=== PATIENT | female | born 1995 | race Caucasian/White ===

== ENCOUNTER 2017-07-16 17:17 | Outpatient (CLI) | payer OTHER ==
[2017-07-16 18:16] LABS: APPEARANCE,URINE CLEAR; BILIRUBIN,URINE NEGATIVE (NEGATIVE); GLUCOSE, URINE NEGATIVE (NEGATIVE); KETONES,URINE NEGATIVE (NEGATIVE); LEUKOCYTE ESTERASE,URINE NEGATIVE (NEGATIVE); NITRITE,URINE NEGATIVE (NEGATIVE); PROTEIN,URINE NEGATIVE (NEGATIVE); URINE SPECIFIC GRAVITY 1.004; UROBILINOGEN,URINE NEGATIVE mg/dL (<2.0)
[2017-07-16 18:35] LABS: URINE BARBITURATES SCREEN NEGATIVE; URINE METHADONE SCREEN NEGATIVE; URINE OPIATES LOW NEGATIVE; URINE PHENCYCLIDINE SCREEN NEGATIVE
--- NOTE | 2017-07-16 19:00 | Non Stress Test Report ---
Non Stress Test Datetime Report Generated by CPN: 07/16/2017 19:00 DEMOGRAPHIC Test Number: 1 EGA NST: 39.6 INDICATION Indication for Study: Decreased Movement; Ordered by Provider Indication for Study (NST) Other: Contractions MONITORING Monitor Explained: Monitor Explained; Test Explained; Patient Verbalized Understanding Time on Monitor: 07/16/2017 17:37 Time off Monitor: 07/16/2017 18:17 NST Duration: 40 NST INTERVENTIONS NST Interventions: None BABY A: [id number] BABY A Movement : Present Contraction Frequency : Irreg FHR Baseline : 135 Accelerations : 15X15 Decelerations : None Variability : Moderate 6-25bpm NST Review: Meets Criteria for Reactive NST NST Review and Verified By : B Baidy RN NST Results: Reactive NST REPORT Report Trigger: Send Report
== END 2017-07-16 18:27 | disposition home or self-care (01) ==
LOC: LC 17:17
PROVIDERS: ATTEND Specialist
DX: O36.8130 Decreased fetal movements, third trimester, not applicable or unspecified (principal); Z3A.39 39 weeks gestation of pregnancy
CPT/HCPCS: 59025; 80307; 81001

== ENCOUNTER 2017-07-17 21:37 | Outpatient (CLI) | payer OTHER ==
[2017-07-17 22:14] LABS: APPEARANCE,URINE CLEAR; BILIRUBIN,URINE NEGATIVE (NEGATIVE); GLUCOSE, URINE NEGATIVE (NEGATIVE); KETONES,URINE NEGATIVE (NEGATIVE); LEUKOCYTE ESTERASE,URINE NEGATIVE (NEGATIVE); NITRITE,URINE NEGATIVE (NEGATIVE); PROTEIN,URINE NEGATIVE (NEGATIVE); URINE SPECIFIC GRAVITY 1.003; UROBILINOGEN,URINE NEGATIVE mg/dL (<2.0)
[2017-07-17 22:22] LABS: AMNISURE (ROM) NEGATIVE (NEGATIVE)
[2017-07-17 22:40] LABS: URINE BARBITURATES SCREEN NEGATIVE; URINE METHADONE SCREEN NEGATIVE; URINE OPIATES LOW NEGATIVE; URINE PHENCYCLIDINE SCREEN NEGATIVE
[2017-07-18] MEDS ORDERED: HYDROXYZINE PAMOATE 50 MG CAPSULE PO ONE (00:51)
[2017-07-18] MEDS ORDERED: HYDROXYZINE PAMOATE 50 MG CAPSULE ONE (00:56)
--- NOTE | 2017-07-18 01:06 | Non Stress Test Report ---
Non Stress Test Datetime Report Generated by CPN: 07/18/2017 01:05 DEMOGRAPHIC EGA NST: 40.0 INDICATION Indication for Study: Ordered by Provider MONITORING Monitor Explained: Monitor Explained; Test Explained; Patient Verbalized Understanding Time on Monitor: 07/17/2017 22:00 Time off Monitor: 07/17/2017 22:48 NST Duration: 48 NST INTERVENTIONS NST Interventions: PO Hydration; Reposition Patient Physician Notified NST: Dr. Sher BABY A Movement : Present Contraction Frequency : 2-8 FHR Baseline : 140 Accelerations : 15X15 Decelerations : None Variability : Moderate 6-25bpm NST Review: Meets Criteria for Reactive NST NST Review and Verified By : SUSHANT Coleman Results: Reactive NST REPORT Report Trigger: Send Report
== END 2017-07-18 01:00 | disposition home or self-care (01) ==
LOC: LC 21:37
PROVIDERS: ATTEND Obstetrics & Gynecology
PROC: 4A1HXCZ Monitoring of Products of Conception, Cardiac Rate, External Approach (ICD-10-PCS; principal; 2017-07-17)
DX: O47.1 False labor at or after 37 completed weeks of gestation (principal); Z3A.40 40 weeks gestation of pregnancy
CPT/HCPCS: 59025; 80307; 81005; 84112

== ENCOUNTER 2017-07-19 06:02 | Inpatient (IN) | payer OTHER ==
[2017-07-19] MEDS ORDERED: RINGERS SOLUTION,LACTATED 300 ML IV ONE (06:03)
[2017-07-19] MEDS ORDERED: RINGERS SOLUTION,LACTATED 1,000 ML IV PRN (06:03)
[2017-07-19] MEDS ORDERED: OXYTOCIN/NORMAL SALINE 20 UNIT/1,000 ML RTUINJ IV PRN ×2 (06:03→13:56)
[2017-07-19 06:25] LABS: APPEARANCE,URINE CLEAR; BILIRUBIN,URINE NEGATIVE (NEGATIVE); GLUCOSE, URINE NEGATIVE (NEGATIVE); KETONES,URINE NEGATIVE (NEGATIVE); LEUKOCYTE ESTERASE,URINE NEGATIVE (NEGATIVE); NITRITE,URINE NEGATIVE (NEGATIVE); PROTEIN,URINE NEGATIVE (NEGATIVE); URINE SPECIFIC GRAVITY 1.005; UROBILINOGEN,URINE NEGATIVE mg/dL (<2.0)
[2017-07-19] MEDS ORDERED: LIDOCAINE 1% INJ-PF (10 MG/ML) 30 ML SDV ONE (06:38)
[2017-07-19] MEDS ORDERED: OXYTOCIN/NORMAL SALINE 20 UNIT/1,000 ML RTUINJ ONE (06:38)
[2017-07-19] MEDS ORDERED: MISOPROSTOL 0.2 MG TABLET ONE (06:38)
[2017-07-19 06:43] LABS: ABSOLUTE EOSINOPHILS # (AUTO) 0.1 10^3/uL (0.0-0.6); ABSOLUTE LYMPHOCYTES (AUTO) 1.9 10^3/uL (0.5-4.7); ABSOLUTE MONOCYTES (AUTO) 0.8 10^3/uL (0.1-1.4); ABSOLUTE NEUT (AUTO) 7.1 10^3/uL (1.7-8.2); BASOPHILS % (AUTO) 0.2 % (0-2); EOSINOPHILS % (AUTO) 0.9 % (0-6); HEMATOCRIT 33.5 % (36.0-47.0); HGB HCT DIFFERENCE 2.5; LYMPHOCYTES % (AUTO) 19.4 % (13-45); MEAN CORPUSCULAR HEMOGLOBIN 32.6 pg (27.0-33.4); MEAN CORPUSCULAR VOLUME 91 fl (80-97); MONOCYTES % (AUTO) 7.8 % (3-13); RED BLOOD COUNT 3.69 10^6/uL (3.72-5.28); SEGMENTED NEUTROPHILS % (AUTO) 71.7 % (42-78); WHITE BLOOD COUNT 9.9 10^3/uL (4.0-10.5)
[2017-07-19 06:45] LABS: URINE BARBITURATES SCREEN NEGATIVE; URINE METHADONE SCREEN NEGATIVE; URINE OPIATES LOW NEGATIVE; URINE PHENCYCLIDINE SCREEN NEGATIVE
[2017-07-19] MEDS ORDERED: MAG HYDROX/AL HYDROX/SIMETH SUSP 30 ML UDCUP ONE (08:31)
[2017-07-19] MEDS ORDERED: FENTANYL/BUPIVACAINE/NS/PF 200 MCG/100 ML RTUINJ EPI ONE (08:55)
[2017-07-19] MEDS ORDERED: BUPIVACAINE HCL 0.25 % INJ/PF (2.5 MG/1 ML) 30 ML VIAL ONE (08:55)
[2017-07-19] MEDS ORDERED: EPHEDRINE SULFATE INJ 50 MG/1 ML AMPULE ONE (08:55)
--- NOTE | 2017-07-19 10:40 | L&D Progress Notes ---
PROGRESS NOTES Datetime Report Generated by CPN: 07/19/2017 10:40 PROGRESS NOTE Impression: Normal Progression of Labor Procedures: Artificial ROM Plan: Induction Comment: AROM clear.Pt comfortable with epidural. Cont pit induction. FETUS A FHR Category: Category I SIGNATURE SIGNATURE: [id number] SIGNATURE: [id number] SIGNATURE: [id number] Signature: with User ID: [email or web address]
[2017-07-19] MEDS ORDERED: BENZOCAINE/MENTHOL AEROSOL SPRAY 56 ML TOP PRN (13:56)
[2017-07-19] MEDS ORDERED: DIPHENHYDRAMINE HCL 25 MG CAPSULE PO PRN (13:56)
[2017-07-19] MEDS ORDERED: PROMETHAZINE HCL 25 MG TABLET PO PRN (13:56)
[2017-07-19] MEDS ORDERED: MEASLES,MUMPS&RUBELLA VACC/PF 0.5 ML VIAL SUBCUT PRN (13:56)
[2017-07-19] MEDS ORDERED: GLYCERIN/WITCH HAZEL LEAF 1 EACH MED..PAD TP PRN (13:56)
[2017-07-19] MEDS ORDERED: DIPH/PERTUSS(ACELL)/TETANUS VAC/PF 0.5 ML SYR (>=10YO) IM PRN (13:56)
[2017-07-19] MEDS ORDERED: MAGNESIUM HYDROXIDE SUSP 30 ML UDCUP PO PRN (13:56)
[2017-07-19] MEDS ORDERED: ACETAMINOPHEN 650 MG SUPP.RECT PR PRN (13:56)
[2017-07-19] MEDS ORDERED: PROMETHAZINE HCL INJ 25 MG/1 ML VIAL IV PRN (13:56)
[2017-07-19] MEDS ORDERED: DIBUCAINE 1% OINTMENT 28 GM TP PRN (13:56)
[2017-07-19] MEDS ORDERED: PSEUDOEPHEDRINE HCL 30 MG TABLET PO PRN (13:56)
[2017-07-19] MEDS ORDERED: NA PHOS,M-B/NA PHOS,DI-BA (ADULT) 133 ML ENEMA PR PRN (13:56)
[2017-07-19] MEDS ORDERED: ACETAMINOPHEN WITH CODEINE #3 TABLET PO PRN (13:56)
[2017-07-19] MEDS ORDERED: ZOLPIDEM TARTRATE 5 MG TABLET PO PRN (13:56)
[2017-07-19] MEDS ORDERED: PROMETHAZINE HCL 25 MG SUPP.RECT PR PRN (13:56)
--- NOTE | 2017-07-19 15:02 | Delivery Summary ---
Del Sum A-C Datetime Report Generated by CPN: 07/19/2017 15:02 DELIVERY PERSONNEL DELIVERY PERSONNEL: [id number] Delivery Doctor:: Alexandra Contreras CNM Labor and Delivery Nurse:: Elizabeth Negrete RNcommercial installer Nurse:: Samantha Elder RN MATERNAL INFORMATION Delivery Anesthesia: Epidural Medications After Delivery: Pitocin Bolus-Please Comment; Pitocin Drip 20 Units/1000ml NSS; Other-Please Comment Meds After Delivery Comment: Cytotec 1000mcg VT Estimated Blood Loss (ml): 300 Maternal Complications: None Provider Comments: live female in [facility] to [facility] at 1315 under epidural anesthesia. Tight nuchal cord-baby delivered through it as unable to reduce. Spontaneous respirations and cry. Apgars 8-9. 3-vessel cord. Cord clamped x 2, after 2 min delay, then cut by fob. Placenta, membranes, and cord expelled at 1121, [place] presentation-appears intact w calcifications. Bilateral labial tears repaired as stated above. 1000 mcg of Cytotec per rectum for bleeding. Patient tolerated procedure well. FF at U-3. LABOR SUMMARY EDC: 07/17/2017 00:00 No. Babies in Womb: 1 Attempted: No Labor Anesthesia: Epidural LABOR INFORMATION Reason for Induction: Other Reason for Induction- Other: Elective-prodromal Onset of Labor: 07/19/2017 07:25 Complete Dilatation: 07/19/2017 12:50 Oxytocin: Induction Group B Beta Strep: negative Antibiotics # of Doses: 0 Steroids Given: None Reason Steroids Not Administered: Not Applicable MEMBRANES Membranes Rupture Method: Artificial Rupture of Membranes: 07/19/2017 10:35 Length of Rupture (hr): 2.67 Amniotic Fluid Color: Clear Amniotic Fluid Amount: Small Amniotic Fluid Odor: Normal STAGES OF LABOR Stage 1 hr: 5 Stage 1 min: 25 Stage 2 hr: 0 Stage 2 min: 25 Stage 3 hr: 0 Stage 3 min: 6 Total Time in Labor hr: 5 Total Time in Labor min: 56 VAGINAL DELIVERY Episiotomy: None Laceration Extension: First Degree Other Laceration: labial Laceration Repair: Yes Laceration Repair Note: 3-0 Chromic used with interrupted stitches CSECTION DELIVERY Primary Indication: N/A Secondary Indication: N/A CSection Incidence: N/A Labor: N/A Elective: N/A CSection Incision: N/A BABY A INFORMATION Delivery Date/Time: 07/19/2017 13:15 Method of Delivery: Vaginal Born in Route : No : N/A Forceps: N/A Vacuum Extraction: N/A Shoulder Dystocia : No PRESENTATION/POSITION BABY A Presentation: Cephalic Cephalic Presentation: Vertex Vertex Position: Left Occipital Anterior Breech Presentation: N/A PLACENTA INFORMATION BABY A Placenta Delivery Time : 07/19/2017 13:21 Placenta Method of Delivery: Spontaneous Placenta Status: Delivered SCORES BABY A Heart Rate 1 min: >100 bpm Resp Effort 1 min: Good Cry Reflex Irritability 1 min: Cough or Sneeze or Pulls Away Muscle Tone 1 min: Active Motion Color 1 min: Blue/Pale Resuscitation Effort 1 min: Tactile Stimulation SCORE 1 MIN: 8 Heart Rate 5 min: >100 bpm Resp Effort 5 min: Good Cry Reflex Irritability 5 min: Cough or Sneeze or Pulls Away Muscle Tone 5 min: Active Motion Color 5 min: Body [place], Extremities Blue Resuscitation Effort 5 min: Tactile Stimulation SCORE 5 MIN: 9 INFANT INFORMATION BABY A Gestational Age at Delivery: 40.2 Gestational Status: Full Term- 39- 40.6 Weeks Outcome : Liveborn Condition : Stable Sex: Female IDENTIFICATION BABY A Verification Date/Time: 07/19/2017 13:49 ID Band Number: [id number] Mother's Name Verified: Yes Infant RN Verifying Infant: A Negrete RN R. Ja RN WEIGHT/LENGTH BABY A Infant Birthweight (gm): 4110 Weight (lb): 9 Weight (oz): 1 Length (in): 21.00 Length (cm): 53.34 CORD INFORMATION BABY A No. Cord Vessels: 3 Nuchal Cord : Around Neck x1, Tight Nuchal Cord- Other: body cord Cord Blood Taken: Yes-For Storage (Mom's Blood type +) Infant Suction: Mouth; Nose ASSESSMENT BABY A Complications: Other Complications- Other: terminal meconium Physical Findings at Delivery: Within Normal Limits Infant Respirations: Appears Normal Skin to Skin: Yes Lbd Teacher/ALS Called : No Care By: Chandrika Elder RN Transferred To: Remains with Mother BABY B INFORMATION : N/A SIGNATURES Assignment: Dasia Espinosa MD Signature: with User ID: Yana : with User ID: [email or web address] : I personally evaluated and examined the patient in conjunction with the MLP and agree with the assessment, treatment plan and disposition.
--- NOTE | 2017-07-19 15:29 | Admission Physical ---
Datetime Report Generated by CPN: 07/19/2017 15:29 CURRENT ADMISSION Hx Assessment: The History has been Reviewed and is Current Chief Complaint: Scheduled Induction of Labor Indication for Induction- Other: protracted latent labor Admit Plan: Initiate Labor Induction Protocol ALLERGIES Medication Allergies: No Medication Allergies: No Known Allergies (07/19/2017) Medication Allergies: No Known Allergies (07/17/2017) Medication Allergies: No Known Allergies (07/16/2017) Medication Allergies: No Known Allergies (07/02/2017) Latex: No Latex Allergies Food Allergies: none Environmental Allergies: none OBSTETRICAL HISTORY EDC: 07/17/2017 00:00 : 3 Para: 1 Term: 1 : 0 SAB: 1 IAB: 0 Ectopic: 0 Livin Cesareans: 0 VBACs: 0 Multiple Births: 0 Gestational Diabetes: No Rh Sensitization: No Incompetent Cervix: No CLAY: No Infertility: No ART Treatment: No Uterine Anomaly: No IUGR: No Hx Previous C/S: No Macrosomia: No Hx Loss/Stillborn: No PIH: No Hx : No Placenta Previa/Abruption: No Depression/PP Depression: Yes PTL/PROM: No Post Hemorrhage: No Current Procedures: Ultrasound; NST Obstetrical History Comments: 2011 SAB 2013 8 lb 1 oz G3 - current SEE RECORDS Alcohol: No Marijuana : No Cocaine: No Other Illicit Drugs: No Cigarettes: Current Everyday Smoker. 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 Surgery: No Heart Disease: No Hosp/Surgery: Yes Autoimmune Disorder: No Anesthetic Complications: No Kidney Disease: No Abnormal Pap Smear: No Neuro/Epilepsy: No Psychiatric Disorders: Yes Other Medical Diseases: No Hepatitis/Liver Disease: No Significant Family History: No Varicosities/Phlebitis: No Trauma/Violence : No Thyroid Dysfunction: No Medical History Comments: depression with anxiety;ADHD;OCD;suicidal behavior; childbirth INFECTIOUS HISTORY Gonorrhea: No Genital Herpes: No Chlamydia: No Tuberculosis: No Syphilis: No Hepatitis: No HIV/AIDS Exposure: No Rash or Viral Illness: No HPV: No PHYSICAL EXAM General: Normal HEENT: Normal Neurologic: Normal Thyroid: Normal Heart: Normal Lungs: Normal Breast: Normal Back: Normal Abdomen: Normal Genitourinary Exam: Normal Extremities: Normal DTRs: Normal Pelvic Type: Adequate FETUS A EGA: 40.2 Monitoring: External US FHR Category: Category I Admit Comment: Pt with protracted latent labor-pit induction, pain management PLANS FOR LABOR AND DELIVERY Labor and Delivery: None Pain Management: Epidural Feeding Preference: Breast Benefit of Breast Feed Discussed: Yes Circumcision: N/A INFORMED CONSENT Signature: with User ID: [email or web address] : I personally evaluated and examined the patient in conjunction with the MLP and agree with the assessment, treatment plan and disposition.
[2017-07-19] MEDS: IBUPROFEN 800 MG TABLET PO SCH ×2 (16:24→21:39)
[2017-07-19] MEDS: FERROUS SULFATE 325 MG TABLET PO SCH (17:05)
[2017-07-19] MEDS: DOCUSATE SODIUM 100 MG CAPSULE PO SCH (17:05)
[2017-07-19] MEDS: ACETAMINOPHEN WITH CODEINE #3 TABLET PO PRN ×2 (17:52→21:40)
[2017-07-19] MEDS: FAMOTIDINE 20 MG TABLET PO SCH (21:38)
[2017-07-20] MEDS: ACETAMINOPHEN WITH CODEINE #3 TABLET PO PRN ×5 (01:52→20:07)
[2017-07-20] MEDS: IBUPROFEN 800 MG TABLET PO SCH ×3 (06:07→22:03)
--- NOTE | 2017-07-20 08:47 | PDOC PROGRESS REPORT ---
Subjective-OB Subjective: Post Delivery Day: 22 year old. Denies any needs at this time Doing well, cramping with , family at BS Physical Exam (OB) Vital Signs: Temp Pulse Resp BP Pulse Ox 98.2 F 92 14 121/77 100 07/20/17 08:37 07/20/17 08:37 07/20/17 08:37 07/20/17 08:37 07/20/17 08:37 Intake & Output 07/19/17 07/20/17 07/21/17 06:59 06:59 06:59 Weight 77.8 kg - PIH/Pre-Eclampsia DTR's: 2 + Clonus: Negative Headache: Absent Epigastric Pain: No Visual Changes: No - Lochia Lochia Amount: Scant < 10 ml Lochia Color: Rubra/Red - Abdomen Description: Tender, Soft Hernia Present: No Fundal Description: Firm Fundal Height: u/u - u/2 Objective-Diagnostic Laboratory: 07/19/17 06:18 Assessment and Plan(PN) - Assessment and Plan (1) Delivery normal Is this a current diagnosis for this admission?: Yes - Time Spent with Patient Time with patient: Less than 15 minutes Medications reviewed and adjusted accordingly: Yes - Disposition Anticipated Discharge: Home Within: within 24 hours
[2017-07-20] MEDS: PRENATAL VITAMIN W-O CA NO5/FE FUMARATE/FA CAPSULE PO SCH (09:54)
[2017-07-20] MEDS: SENNOSIDES/DOCUSATE 8.6-50 MG 1 EACH TABLET PO SCH (09:54)
[2017-07-20] MEDS: FERROUS SULFATE 325 MG TABLET PO SCH ×2 (09:55→18:33)
[2017-07-20] MEDS: DOCUSATE SODIUM 100 MG CAPSULE PO SCH ×2 (09:55→18:33)
[2017-07-20] MEDS: FAMOTIDINE 20 MG TABLET PO SCH ×2 (09:55→22:03)
[2017-07-20 09:56] LABS: HEMATOCRIT 30.6 % (36.0-47.0); HEMOGLOBIN 10.9 g/dL (12.0-15.5); HGB HCT DIFFERENCE 2.1; MEAN CORPUSCULAR HEMOGLOBIN 32.5 pg (27.0-33.4); MEAN CORPUSCULAR HGB CONC 35.6 g/dL (32.0-36.0); MEAN CORPUSCULAR VOLUME 91 fl (80-97); RED BLOOD COUNT 3.36 10^6/uL (3.72-5.28); RED CELL DISTRIBUTION WIDTH 13.9 % (11.5-14.0); WHITE BLOOD COUNT 8.9 10^3/uL (4.0-10.5)
[2017-07-21] MEDS: ACETAMINOPHEN WITH CODEINE #3 TABLET PO PRN ×2 (04:00→08:32)
[2017-07-21] MEDS: IBUPROFEN 800 MG TABLET PO SCH (05:22)
[2017-07-21 08:48] VITALS: BP 98/48
--- NOTE | 2017-07-21 09:01 | PDOC DISCHARGE SUMMARY ---
Final Diagnosis Discharge Date: 07/21/17 Discharge Data - Discharge Medication Home Medications: Vit,Calc78/Iron/Folic [Prenatabs FA Tablet] 1 tab PO DAILY 07/16/17 Acetaminophen with Codeine [Tylenol #3 Tablet] 2 each PO Q4HP PRN #20 tablet Docusate Sodium [Colace 100 mg Capsule] 100 mg PO BID #60 capsule 07/21/17 Ferrous Sulfate [Feosol 325 mg Tablet] 325 mg PO BID #60 tablet 07/21/17 Ibuprofen [Motrin 800 mg Tablet] 800 mg PO Q8 #60 tablet 07/21/17 Gestational Age: 40.2 Reason(s) for Admission: Onset of Labor Procedures: NST Intrapartum Procedure(s): Spontaneous Vaginal Delivery Complication(s): Laceration-Labial Laceration-Degree: 1st - [place] Data Baby 1 Female at 1 minute: 8 at 5 minutes: 9 Weight: 4110 kg Home with Mother: Yes Complications: No - Diagnosis Test Laboratory: Temp Pulse Resp BP Pulse Ox 97.6 F 68 18 121/77 100 07/21/17 08:37 07/21/17 08:37 07/21/17 08:37 07/21/17 08:37 07/21/17 08:37 07/19/17 07/19/17 07/20/17 06:05 06:18 09:11 RBC 3.69 L 3.36 L Hgb 12.0 10.9 L Hct 33.5 L 30.6 L Urine Opiates Screen NEGATIVE - Discharge information/Instructions Discharge Activity: Activity As Tolerated, Pelvic Rest, No tub bath Discharge Diet: Regular Disposition: HOME, SELF-CARE Follow up with: [facility] in: 1, Weeks - hx anxiety, depression, bipolar, ocd, declined to start depression meds.
[2017-07-21] MEDS: FAMOTIDINE 20 MG TABLET PO SCH (09:28)
[2017-07-21] MEDS: DOCUSATE SODIUM 100 MG CAPSULE PO SCH (09:28)
[2017-07-21] MEDS: PRENATAL VITAMIN W-O CA NO5/FE FUMARATE/FA CAPSULE PO SCH (09:28)
[2017-07-21] MEDS: FERROUS SULFATE 325 MG TABLET PO SCH (09:28)
[2017-07-21] MEDS: SENNOSIDES/DOCUSATE 8.6-50 MG 1 EACH TABLET PO SCH (09:29)
== END 2017-07-21 11:40 | disposition home or self-care (01) | DRG 775 ==
LOC: LR 06:02 → 2S 15:26
PROVIDERS: ADMIT Specialist; ATTEND Specialist
PROC: 10E0XZZ Delivery of Products of Conception, External Approach (ICD-10-PCS; principal; 2017-07-19)
PROC: 0HQ9XZZ Repair Perineum Skin, External Approach (ICD-10-PCS; 2017-07-19)
PROC: 3E033VJ Introduction of Other Hormone into Peripheral Vein, Percutaneous Approach (ICD-10-PCS; 2017-07-19)
PROC: 3E0P7GC Introduction of Other Therapeutic Substance into Female Reproductive, Via Natural or Artificial Opening (ICD-10-PCS; 2017-07-19)
PROC: 4A1HXCZ Monitoring of Products of Conception, Cardiac Rate, External Approach (ICD-10-PCS; 2017-07-19)
DX: O99.344 Other mental disorders complicating childbirth (principal); O77.0 Labor and delivery complicated by meconium in amniotic fluid; F31.9 Bipolar disorder, unspecified; O70.0 First degree perineal laceration during delivery; F41.9 Anxiety disorder, unspecified; F90.9 Attention-deficit hyperactivity disorder, unspecified type; O69.1XX0 Labor and delivery complicated by cord around neck, with compression, not applicable or unspecified; O99.334 Smoking (tobacco) complicating childbirth; F17.210 Nicotine dependence, cigarettes, uncomplicated; Z3A.40 40 weeks gestation of pregnancy; Z37.0 Single live birth
CPT/HCPCS: 36415; 80307; 81005; 85025; 85027; 86592; 86850; 86900; 86901; 88307; 94760; J2590; J3490

== ENCOUNTER 2017-07-26 09:03 | Emergency (ER) | payer OTHER ==
[2017-07-26 10:30] LABS: ABSOLUTE BASOPHILS # (AUTO) 0.1 10^3/uL (0.0-0.2); ABSOLUTE EOSINOPHILS # (AUTO) 0.2 10^3/uL (0.0-0.6); ABSOLUTE LYMPHOCYTES (AUTO) 1.4 10^3/uL (0.5-4.7); ABSOLUTE MONOCYTES (AUTO) 0.5 10^3/uL (0.1-1.4); ABSOLUTE NEUT (AUTO) 3.6 10^3/uL (1.7-8.2); BASOPHILS % (AUTO) 0.9 % (0-2); EOSINOPHILS % (AUTO) 3.5 % (0-6); HEMATOCRIT 32.8 % (36.0-47.0); HEMOGLOBIN 11.3 g/dL (12.0-15.5); HGB HCT DIFFERENCE 1.1; LYMPHOCYTES % (AUTO) 24.5 % (13-45); MEAN CORPUSCULAR HEMOGLOBIN 31.3 pg (27.0-33.4); MEAN CORPUSCULAR HGB CONC 34.4 g/dL (32.0-36.0); MEAN CORPUSCULAR VOLUME 91 fl (80-97); MONOCYTES % (AUTO) 8.9 % (3-13); RED BLOOD COUNT 3.61 10^6/uL (3.72-5.28); RED CELL DISTRIBUTION WIDTH 14.3 % (11.5-14.0); SEGMENTED NEUTROPHILS % (AUTO) 62.2 % (42-78); WHITE BLOOD COUNT 5.7 10^3/uL (4.0-10.5)
[2017-07-26 10:43] LABS: ALANINE AMINOTRANSFERASE 50 U/L (9-52); ALBUMIN 3.3 g/dL (3.5-5.0); ALKALINE PHOSPHATASE 109 U/L (38-126); ANION GAP 8 (5-19); ASPARTATE AMINO TRANSFERASE 30 U/L (14-36); BILIRUBIN,DIRECT 0.3 mg/dL (0.0-0.4); BILIRUBIN,TOTAL 0.4 mg/dL (0.2-1.3); BLOOD UREA NITROGEN 9 mg/dL (7-20); CALCIUM 8.9 mg/dL (8.4-10.2); CARBON DIOXIDE 21 mmol/L (22-30); CHLORIDE 111 mmol/L (98-107); CREATININE RESULT 0.61 mg/dL (0.52-1.25); GLUCOSE 79 mg/dL (75-110); POTASSIUM 3.8 mmol/L (3.6-5.0); SODIUM 139.6 mmol/L (137-145)
--- NOTE | 2017-07-26 10:51 | ER Document Report ---
ED General - General Chief Complaint: Post Problem Stated Complaint: POST BLEEDING AND CRAMPING Time Seen by Provider: 07/26/17 09:19 Mode of Arrival: Ambulatory Information source: Patient Notes: 22-year-old female who delivered 1 week prior and was noted to have bleeding at that time presents with complaints of vaginal bleeding with pelvic cramping. Patient denies any fevers or chills admits that she feels weak. Patient notes she passed one golf ball size clot and has had some bleeding since TRAVEL OUTSIDE OF THE [place] IN LAST 30 DAYS: No - HPI Onset: Just prior to arrival Onset/Duration: Sudden Quality of pain: Cramping Severity: Mild Pain Level: 1 Associated symptoms: None Exacerbated by: Denies Relieved by: Denies Similar symptoms previously: Yes Recently seen / treated by doctor: Yes - Related Data Allergies/Adverse Reactions: No Known Allergies Allergy (Verified 07/19/17 06:52) Past Medical History - Social History Smoking Status: Current Every Day Smoker Cigarette use (# per day): Yes Chew tobacco use (# tins/day): No Smoking Education Provided: No Family History: Reviewed & Not Pertinent Patient has suicidal ideation: No Patient has homicidal ideation: No Renal/ Medical History: Denies: Hx Peritoneal Dialysis Review of Systems - Review of Systems Notes: REVIEW OF SYSTEMS: CONSTITUTIONAL : Denies fever, chills, or sweats. Denies recent illness. EENT: Denies eye, ear, throat, or mouth pain or symptoms. Denies nasal or sinus congestion or discharge. Denies throat, tongue, or mouth swelling or difficulty swallowing. CARDIOVASCULAR: Denies chest pain. Denies palpitations or racing or irregular heart beat. Denies ankle edema. RESPIRATORY: Denies cough, cold, or chest congestion. Denies shortness of breath, difficulty breathing, or wheezing. GASTROINTESTINAL: Denies abdominal pain or distention. Denies nausea, vomiting , or diarrhea. Denies blood in vomitus, stools, or per rectum. Denies black, tarry stools. Denies constipation. GENITOURINARY: Denies difficulty urinating, painful urination, burning, frequency, blood in urine, or discharge. FEMALE GENITOURINARY: Admits vaginal bleeding MUSCULOSKELETAL: Denies back or neck pain or stiffness. Denies joint pain or swelling. SKIN: Denies rash, lesions or sores. HEMATOLOGIC : Denies easy bruising or bleeding. LYMPHATIC: Denies swollen, enlarged glands. NEUROLOGICAL: Denies confusion or altered mental status. Denies passing out or loss of consciousness. Denies dizziness or lightheadedness. Denies headache. Denies weakness or paralysis or loss of use of either side. Denies problems with gait or speech. Denies sensory loss, numbness, or tingling. Denies seizures. PSYCHIATRIC: Denies anxiety or stress. Denies depression, suicidal ideation, or homicidal ideation. ALL OTHER SYSTEMS REVIEWED AND NEGATIVE. PHYSICAL EXAMINATION: GENERAL: Well-appearing, well-nourished and in no acute distress. HEAD: Atraumatic, normocephalic. EYES: Pupils equal round and reactive to light, extraocular movements intact, conjunctiva are normal. ENT: Nares patent, oropharynx clear without exudates. Moist mucous membranes. NECK: Normal range of motion, supple without lymphadenopathy LUNGS: Breath sounds clear to auscultation bilaterally and equal. No wheezes rales or rhonchi. HEART: Regular rate and rhythm without murmurs ABDOMEN: Soft, nontender, nondistended abdomen. No guarding, no rebound. No masses appreciated. Female : deferred Musculoskeletal: Normal range of motion, no pitting or edema. No cyanosis. NEUROLOGICAL: Cranial nerves grossly intact. Normal speech, normal gait. Normal sensory, motor exams PSYCH: Normal mood, normal affect. SKIN: Warm, Dry, normal turgor, no rashes or lesions noted. Dictation was performed using [employer] voice recognition software Physical Exam - Vital signs Vitals: Temp Pulse Resp BP Pulse Ox 97.8 F 74 18 126/79 H 99 07/26/17 09:08 07/26/17 09:08 07/26/17 09:08 07/26/17 09:08 07/26/17 09:08 Course - Re-evaluation Re-evalutation: 07/26/17 10:55 D Yumiko notes no concern for the bleeding , requests cytotec 600mg per rectum . 07/26/17 16:35 Patient's hemoglobin improved from her previous visit. Given that I spoke with [facility] and patient looks well to me I have very low suspicion for any life- threatening issues. Patient will be given very close follow-up will be discharged home at this time to be seen by [facility] After performing a Medical Screening Examination, I estimate there is LOW risk for ACUTE APPENDICITIS, BOWEL OBSTRUCTION, ACUTE CHOLECYSTITIS, PERFORATED DIVERTICULITIS, INCARCERATED HERNIA, PANCREATITIS, PELVIC INFLAMMATORY DISEASE, PERFORATED ULCER, or TUBO-OVARIAN ABSCESS, thus I consider the discharge disposition reasonable. Also, there is no evidence or peritonitis, sepsis, or toxicity. I have reevaluated this patient multiple times and no significant life threatening changes are noted. The patient and I have discussed the diagnosis and risks, and we agree with discharging home with close follow-up with the understanding that symptoms and presentations can change. We also discussed returning to the Emergency Department immediately if new or worsening symptoms occur. We have discussed the symptoms which are most concerning (e.g., bloody stool, fever, changing or worsening pain, vomiting) that necessitate immediate return. - Vital Signs Vital signs: Temp Pulse Resp BP Pulse Ox 98.0 F 70 14 130/71 H 99 07/26/17 12:27 07/26/17 12:27 07/26/17 12:27 07/26/17 12:27 07/26/17 12:27 - Laboratory Result Diagrams: 07/26/17 10:19 07/26/17 10:19 Laboratory results interpreted by me: 07/26/17 07/26/17 07/26/17 10:19 10:19 11:23 RBC 3.61 L Hgb 11.3 L Hct 32.8 L RDW 14.3 H Chloride 111 H Carbon Dioxide 21 L Total Protein 6.0 L Albumin 3.3 L Urine Blood SMALL H Discharge - Discharge Clinical Impression: Vaginal bleeding, Delivery normal Condition: Stable Disposition: HOME, SELF-CARE Instructions: Vaginal Bleeding ([facility]) Prescriptions: Hydrocodone/Acetaminophen [[place] 5-325 mg Tablet] 1 tab PO Q6 #10 tablet Referrals: ROSANNA QUEEN MD [ACTIVE STAFF] - Follow up tomorrow
[2017-07-26] MEDS ORDERED: MISOPROSTOL 0.2 MG TABLET PR ONE (10:56)
[2017-07-26] MEDS ORDERED: HYDROCODONE/ACETAMINOPHEN 5-325 MG TABLET PO ONE (11:16)
[2017-07-26 12:03] LABS: APPEARANCE,URINE CLEAR; BILIRUBIN,URINE NEGATIVE (NEGATIVE); GLUCOSE, URINE NEGATIVE (NEGATIVE); KETONES,URINE NEGATIVE (NEGATIVE); LEUKOCYTE ESTERASE,URINE NEGATIVE (NEGATIVE); NITRITE,URINE NEGATIVE (NEGATIVE); PROTEIN,URINE NEGATIVE (NEGATIVE); URINE SPECIFIC GRAVITY 1.005; UROBILINOGEN,URINE NEGATIVE mg/dL (<2.0)
[2017-07-26 12:31] VITALS: BP 130/71
== END 2017-07-26 12:27 | disposition home or self-care (01) ==
LOC: ER 09:03
DX: O72.2 Delayed and secondary postpartum hemorrhage (principal); O90.89 Other complications of the puerperium, not elsewhere classified; R10.2 Pelvic and perineal pain; O99.335 Smoking (tobacco) complicating the puerperium; F17.210 Nicotine dependence, cigarettes, uncomplicated
CPT/HCPCS: 36415; 80053; 81001; 85025; 99284

== ENCOUNTER 2019-04-15 17:40 | Emergency (ER) | payer OTHER ==
[2019-04-15] MEDS ORDERED: ACETAMINOPHEN 325 MG TABLET PO ONE (19:09)
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
[2019-04-15 20:51] VITALS: BP 133/94
== END 2019-04-15 21:41 | disposition home or self-care (01) ==
LOC: ER 17:40
DX: S00.12XA Contusion of left eyelid and periocular area, initial encounter (principal); S40.022A Contusion of left upper arm, initial encounter; S09.22XA Traumatic rupture of left ear drum, initial encounter; R51 Headache; H11.32 Conjunctival hemorrhage, left eye; R07.1 Chest pain on breathing; R07.81 Pleurodynia; Y04.2XXA Assault by strike against or bumped into by another person, initial encounter; Y92.810 Car as the place of occurrence of the external cause; F17.210 Nicotine dependence, cigarettes, uncomplicated
CPT/HCPCS: 70450; 71111; 99284

== ENCOUNTER 2019-11-10 04:24 | Emergency (ER) | payer OTHER ==
[2019-11-10] MEDS ORDERED: NORMAL SALINE 1000 ML 1,000 ML IV ONE (04:58)
[2019-11-10] MEDS ORDERED: ONDANSETRON HCL INJ/PF 4 MG/2 ML SDV IV ONE (04:58)
[2019-11-10 05:27] LABS: ABSOLUTE EOSINOPHILS # (AUTO) 0.1 10^3/uL (0.0-0.6); ABSOLUTE LYMPHOCYTES (AUTO) 1.2 10^3/uL (0.5-4.7); ABSOLUTE MONOCYTES (AUTO) 0.3 10^3/uL (0.1-1.4); ABSOLUTE NEUT (AUTO) 4.9 10^3/uL (1.7-8.2); BASOPHILS % (AUTO) 0.2 % (0-2); EOSINOPHILS % (AUTO) 1.2 % (0-6); HEMATOCRIT 44.2 % (36.0-47.0); HEMOGLOBIN 15.5 g/dL (12.0-15.5); LYMPHOCYTES % (AUTO) 18.1 % (13-45); MEAN CORPUSCULAR HEMOGLOBIN 33.1 pg (27.0-33.4); MEAN CORPUSCULAR HGB CONC 35.2 g/dL (32.0-36.0); MEAN CORPUSCULAR VOLUME 94 fl (80-97); MONOCYTES % (AUTO) 5.3 % (3-13); PLATELET COUNT 184 10^3/uL (150-450); RED BLOOD COUNT 4.69 10^6/uL (3.72-5.28); RED CELL DISTRIBUTION WIDTH 12.7 % (11.5-14.0); SEGMENTED NEUTROPHILS % (AUTO) 75.2 % (42-78); TOTAL CELLS COUNTED % (AUTO) 100 %; WHITE BLOOD COUNT 6.5 10^3/uL (4.0-10.5)
[2019-11-10 05:34] LABS: APPEARANCE,URINE CLOUDY; BILIRUBIN,URINE NEGATIVE (NEGATIVE); COLOR,URINE RED; GLUCOSE, URINE 50 mg/dL (NEGATIVE); KETONES,URINE TRACE mg/dL (NEGATIVE); LEUKOCYTE ESTERASE,URINE NEGATIVE (NEGATIVE); NITRITE,URINE NEGATIVE (NEGATIVE); PROTEIN,URINE 100 mg/dL (NEGATIVE); URINE SPECIFIC GRAVITY 1.014; UROBILINOGEN,URINE NEGATIVE mg/dL (<2.0)
[2019-11-10] MEDS ORDERED: DIPHENHYDRAMINE HCL 50 MG/ML VIAL IV ONE (05:42)
[2019-11-10] MEDS ORDERED: KETOROLAC TROMETHAMINE INJ/PF 30 MG/1 ML SDV IV ONE (05:42)
[2019-11-10] MEDS ORDERED: PROCHLORPERAZINE EDISYLATE INJ 10 MG/2 ML VIAL IM ONE (05:42)
--- NOTE | 2019-11-10 05:44 | ER Document Report ---
ED GI/ - General Chief Complaint: Nausea/Vomiting/Diarrhea Stated Complaint: VOMITING Time Seen by Provider: 11/10/19 05:17 Mode of Arrival: Ambulatory Information source: Patient Notes: 24-year-old female presented to ED for complaint of nausea vomiting and diarrhea for the last day and a half. She states she developed a headache after having some vomiting and diarrhea. She states she been trying to keep fluids down and taken some Tylenol Motrin yesterday for her headache and was not able to keep the fluids or foods down. She denies any fevers chills or any other symptoms. She states she is on her menstrual cycle at this time. TRAVEL OUTSIDE OF THE [place] IN LAST 30 DAYS: No - HPI Patient complains to provider of: Abdominal pain - Cramping, Diarrhea, Vomiting, Other - Neck Onset: Other Timing/Duration: Intermittent Quality of pain: Cramping - 2 days Severity at maximum: Moderate Severity in ED: Moderate Pain Level: 4 Location: Pelvis Vaginal bleeding (Compared to normal period): Similar - On her cycle LMP: Now Associated symptoms: Diarrhea, Nausea, Vomiting, Other - Headache Exacerbated by: Denies Relieved by: Denies Similar symptoms previously: No Recently seen / treated by doctor: No - Related Data Allergies/Adverse Reactions: No Known Allergies Allergy (Verified 07/19/17 06:52) Home Medications: Ambien, prozac, synthroid Past Medical History - General Information source: Patient - Social History Smoking Status: Current Every Day Smoker Cigarette use (# per day): Yes - Half pack per day Smoking Education Provided: Yes - 4 minutes Frequency of alcohol use: None Drug Abuse: None 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 Lives with: Family Family History: Reviewed & Not Pertinent Patient has suicidal ideation: No Patient has homicidal ideation: No - Past Medical History Cardiac Medical History: Reports: None Pulmonary Medical History: Reports: None EENT Medical History: Reports: None Neurological Medical History: Reports: Hx Migraine Endocrine Medical History: Reports: Hx Hypothyroidism Renal/ Medical History: Reports: None Malignancy Medical History: Reports: None GI Medical History: Reports: None Musculoskeletal Medical History: Reports None Skin Medical History: Reports None Psychiatric Medical History: Reports: Hx Attention Deficit Hyperactivity Disorder, Hx Depression, Other - Insomnia Traumatic Medical History: Reports: None Infectious Medical History: Reports: None Surgical Hx: Negative Past Surgical History: Reports: None Review of Systems - Review of Systems Constitutional: No symptoms reported EENT: No symptoms reported Cardiovascular: No symptoms reported Respiratory: No symptoms reported Gastrointestinal: Diarrhea, Nausea, Vomiting Genitourinary: No symptoms reported Female Genitourinary: No symptoms reported Musculoskeletal: No symptoms reported Skin: No symptoms reported Hematologic/Lymphatic: No symptoms reported Neurological/Psychological: Headaches -: Yes All other systems reviewed and negative Physical Exam - Vital signs Vitals: Temp Pulse Resp BP Pulse Ox 98.7 F 108 H 18 136/98 H 97 11/10/19 04:29 11/10/19 04:29 11/10/19 04:29 11/10/19 04:29 11/10/19 04:29 Interpretation: Normal - General General appearance: Appears well, Alert - HEENT Head: Normocephalic, Atraumatic Eyes: Normal Pupils: PERRL - Respiratory Respiratory status: No respiratory distress Chest status: Nontender Breath sounds: Normal Chest palpation: Normal - Cardiovascular Rhythm: Regular Heart sounds: Normal auscultation Murmur: No - Abdominal Inspection: Normal Distension: No distension Bowel sounds: Hyperactive Tenderness: Tender - Pelvic she states due to menstrual cycle Organomegaly: No organomegaly - Back Back: Normal, Nontender - Extremities General upper extremity: Normal inspection, Nontender, Normal color, Normal ROM, Normal temperature General lower extremity: Normal inspection, Nontender, Normal color, Normal ROM, Normal temperature, Normal weight bearing. No: Jemal's sign - Neurological Neuro grossly intact: Yes Cognition: Normal Orientation: AAOx4 Elvis Coma Scale Eye Opening: Spontaneous [place] Coma Scale Verbal: Oriented [place] Coma Scale Motor: Obeys Commands Elvis Coma Scale Total: 15 Speech: Normal Motor strength normal: LUE, RUE, LLE, RLE Sensory: Normal - Psychological Associated symptoms: Normal affect, Normal mood - Skin Skin Temperature: Warm Skin Moisture: Dry Skin Color: Normal Course - Re-evaluation Re-evalutation: 11/10/19 07:33 Labs discussed with patient. Written report labs given to patient for follow-up with her primary doctor. She was given 2 L of fluids for her cardiac status 16. She was also treated with Toradol Compazine and Benadryl for her headache and nausea and vomiting. She states she feels much better no more nausea vomiting or headache. She will be discharged home with a prescription for Zofran. Patient verbalized understanding and agreement treatment plan patient was discharged home. - Vital Signs Vital signs: Temp Pulse Resp BP Pulse Ox 98.2 F 72 16 115/62 100 11/10/19 08:05 11/10/19 08:05 11/10/19 08:05 11/10/19 08:05 11/10/19 08:05 - Laboratory Result Diagrams: 11/10/19 04:40 11/10/19 04:40 Laboratory results interpreted by me: 11/10/19 11/10/19 04:40 04:40 Sodium 136.5 L Carbon Dioxide 16 L Urine Protein 100 H Urine Glucose (UA) 50 H Urine Ketones TRACE H Urine Blood LARGE H Discharge - Discharge Clinical Impression: Nausea vomiting and diarrhea, Dehydration Headache Qualifiers: Headache type: unspecified Headache chronicity pattern: unspecified pattern Intractability: not intractable Qualified Code(s): R51 - Headache Condition: Stable Disposition: HOME, SELF-CARE Additional Instructions: VOMITING: Vomiting (or nausea without vomiting) can be caused by many other different problems. It can mean that something's wrong with the stomach, such as ulcers or inflammation or the intestinal tract, such as appendicitis. But it can also be a symptom of a problem that has nothing to do with the stomach or intestines. Vomiting is common with severe headaches, earaches, tonsillitis, and kidney infections, etc. We see it with pneumonia or heart attacks. Drugs can cause nausea and vomiting. Many abdominal problems cause vomiting; for example, gallstones, kidney stones, pancreatitis, and intestinal obstruction (blocked bowels). In most cases, curing the vomiting depends on fixing the problem that caused it. For temporary relief, we may use an anti-nausea medicine. For home use, we can prescribe suppositories, chewable pills, pills that dissolve in the mouth, or liquid anti-nausea drugs. If the vomiting seems to be caused by a problem in the stomach, acid-suppressing drugs may be prescribed as well. It's important to avoid dehydration. Sip small amounts of clear liquids (soft drinks, tea, broth, etc) . Try to take fluids frequently even if you are vomiting to prevent dehydration. Take increasing amounts of fluid and when liquids are being consumed successfully, advance to small amounts of bland food (toast, soups, mashed potatoes, etc.) until you are able to resume a regular diet. Avoid aspirin, tobacco, and alcohol. If the vomiting worsens, if the problem that's making you vomit worsens, or if there's evidence of bleeding in the stomach (such as black, tarry stool, or bloody or black vomit), you should return immediately. Also, return if abdominal pain worsens or becomes localized to one area or you develop high fever. Call your doctor if you aren't improved in 24 hours. DIARRHEA, NON-SPECIFIC: Diarrhea means frequent, watery stools. There are many causes. Any problem that keeps the intestinal tract from absorbing water from the stool can lead to diarrhea. A sudden new diarrhea problem is usually caused by a virus, food sensitivity, toxic bacteria, or drugs. In this case, we expect the problem to go away soon. Testing is done only if you seem seriously ill from the diarrhea. If you have chronic diarrhea, or diarrhea that keeps coming back, we need to find out why. Chronic diarrhea can be due to inflammation of the bowels such as Crohn's disease or ulcerative colitis, food sensitivity such as intolerance to lactose or wheat protein, irritable bowel syndrome, and other problems. If your diarrhea is a significant problem but it's not clear why you have it, we'll refer you to a specialist for further testing. During an episode of diarrhea, drink small amounts (two to six ounces) of clear liquids (soft drinks, sport drinks, herb teas, broth, etc). Take fluids frequently to prevent dehydration. It's usually not a problem to take mild anti-diarrhea medication such as Kaopectate or Pepto-Bismol. As the diarrhea eases, advance to small amounts of bland food (mashed potato, toast) for 24 hours. Call the physician if blood appears in your vomit or stool, if vomiting lasts longer than 24 hours, if the abdominal pain worsens or becomes localized to one area, if you develop high fever, or if you become lightheaded and weak. VIRAL SYNDROME: The physician has diagnosed a viral infection. Viruses not only cause "colds," but can cause many different symptoms including generalized aching, fever, headache, cough, diarrhea, nausea, vomiting, and fatigue. The treatment, for the most part, is simply relief of symptoms. This means that antibiotics are usually not given. Rest, fluids, pain medications and, occasionally, medication for the specific symptoms that are most bothersome will be prescribed. Use good handwashing to avoid passing the virus to others. Shared toys should be cleaned with disinfectant. Clean the toilets, sinks, and counter surfaces in bathrooms. Launder clothing in hot water. Contact the physician if you develop any new or unusual symptoms such as severe headache, stiff neck, high fever, chest pain, productive cough, or shortness of breath. You should be rechecked if you don't see marked im provement within seven to 10 days. HEADACHE: The physician does not feel that the headache you are experiencing has a serious underlying cause. Most headaches are due to emotional stress, with resultant muscle tension (tension headache). Occasionally, headaches are secondary to changes in the blood vessels of the scalp (vascular headache and migraine headache). Sometimes, a headache is the first symptom of another developing illness, such as a viral infection. You have no evidence of stroke, bleeding, meningitis, or other serious cause of your headache. The treatment of headaches varies with the severity and cause of the pain. Not all headaches need pain shots. In fact, there is evidence that using narcotics for headaches may make them worse in the long run. The physician will determine the therapy that's in your best interest. If you develop a fever, if the headache is different from any you've previously experienced, or if the headache progressively worsens, then call your physician at once or go to the emergency room. USE OF DIPHENHYDRAMINE: Diphenhydramine (Benadryl) is an antihistamine and has been recommended to help treat your headache and to prevent side effects of other medications used to treat headaches. The medication can be repeated four times daily. Age Elixir (12.5 mg/tsp) 25 mg pill adult 1-2 tabs Antihistamines may cause drowsiness, especially with the first dose. Do not operate machinery or drive while under the effects of the medication. Do not combine the medication with alcohol, or with any other medication without talking to your doctor. INTRAVENOUS COMPAZINE FOR HEADACHE: You have received therapy for headaches, using intravenous Compazine. This treatment is dramatically successful in relieving the headache in about 50 percent of cases. When it works, it provides a rapid method of eliminating the headache without resorting to narcotics (and the problems associated with them). Most patients still feel fully alert after the Compazine, but others may be slightly drowsy. It's best not to drive or work with machinery for six to eight hours. Do not take alcohol or other medication unless you discuss it with the doctor. If you develop tightness and spasms in your muscles, especially the neck and tongue, you should return. This is a side effect which can be treated. TORADOL INJECTION: You have been given an injection of ketorolac tromethamine (Toradol). This is an excellent, safe drug for pain control. It also has potent antiinflammatory action. You should have significant pain relief within about one hour. Toradol is not addicting and is non-sedating. It does not interfere with driving or work. Call or return if you develop itching, hives, shortness of breath, or rash. ANTINAUSEA MEDICATION: You have been given a medication to suppress nausea and vomiting. This type of medication can be given as a shot, pill, or suppository. It will usually last for many hours. Pills and shots usually last six to eight hours. For the typical illness, only one or two doses of the medication may be necessary. Mild lightheadedness may occur. This type of medicine can cause drowsiness. Do not drive or operate dangerous machinery while under its influence. Do not mix with alcohol. See your doctor at once if you have muscle spasms or tightness, or uncontrollable motions (particularly of the neck, mouth, or jaw). Persistent vomiting or severe lightheadedness should also be evaluated by the physician. FOLLOW-UP CARE: If you have been referred to a physician for follow-up care, call the physicians office for an appointment as you were instructed or within the next two days. If you experience worsening or a significant change in your symptoms, notify the physician immediately or return to the Emergency Department at any time for re-evaluation. Prescriptions: Ondansetron [Zofran Odt 4 mg Tablet] 1 tab PO Q6H #15 tab.rapdis Forms: Elevated Blood Pressure, Smoking Cessation Education
[2019-11-10 05:45] LABS: ALBUMIN 4.5 g/dL (3.5-5.0); ALKALINE PHOSPHATASE 61 U/L (38-126); ANION GAP 15 (5-19); ASPARTATE AMINO TRANSFERASE 30 U/L (14-36); BILIRUBIN,DIRECT 0.1 mg/dL (0.0-0.4); BILIRUBIN,TOTAL 0.8 mg/dL (0.2-1.3); BLOOD UREA NITROGEN 9 mg/dL (7-20); CALCIUM 9.1 mg/dL (8.4-10.2); CARBON DIOXIDE 16 mmol/L (22-30); CHLORIDE 106 mmol/L (98-107); GLUCOSE 80 mg/dL (75-110); POTASSIUM 3.8 mmol/L (3.6-5.0); TOTAL PROTEIN 7.6 g/dL (6.3-8.2)
[2019-11-10] MEDS ORDERED: NORMAL SALINE 500 ML IV ONE (06:19)
[2019-11-10 08:06] VITALS: BP 115/62
== END 2019-11-10 08:05 | disposition home or self-care (01) ==
LOC: ER 04:24
DX: R11.2 Nausea with vomiting, unspecified (principal); R19.7 Diarrhea, unspecified; E86.0 Dehydration; R51 Headache; F17.210 Nicotine dependence, cigarettes, uncomplicated
CPT/HCPCS: 99283; 96372; 96361; 96374; 96375; 36415; 85025; 80053; 81001; J1200; J1885; J0780; J2405; J7030; J7040

== ENCOUNTER 2019-11-15 05:04 | Emergency (ER) | payer OTHER ==
[2019-11-15 05:25] VITALS: BP 119/78
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
[2019-11-15 05:43] LABS: ABSOLUTE EOSINOPHILS # (AUTO) 0.1 10^3/uL (0.0-0.6); ABSOLUTE MONOCYTES (AUTO) 0.4 10^3/uL (0.1-1.4); ABSOLUTE NEUT (AUTO) 2.9 10^3/uL (1.7-8.2); BASOPHILS % (AUTO) 0.6 % (0-2); HEMATOCRIT 39.8 % (36.0-47.0); MEAN CORPUSCULAR HEMOGLOBIN 32.6 pg (27.0-33.4); MEAN CORPUSCULAR HGB CONC 35.2 g/dL (32.0-36.0); MEAN CORPUSCULAR VOLUME 93 fl (80-97); MONOCYTES % (AUTO) 7.4 % (3-13); PLATELET COUNT 209 10^3/uL (150-450); RED BLOOD COUNT 4.29 10^6/uL (3.72-5.28); RED CELL DISTRIBUTION WIDTH 12.2 % (11.5-14.0); TOTAL CELLS COUNTED % (AUTO) 100 %; WHITE BLOOD COUNT 5.5 10^3/uL (4.0-10.5)
[2019-11-15 06:06] LABS: ALBUMIN 4.7 g/dL (3.5-5.0); ALKALINE PHOSPHATASE 57 U/L (38-126); ANION GAP 11 (5-19); ASPARTATE AMINO TRANSFERASE 34 U/L (14-36); BILIRUBIN,DIRECT 0.3 mg/dL (0.0-0.4); BILIRUBIN,TOTAL 0.6 mg/dL (0.2-1.3); BLOOD UREA NITROGEN 9 mg/dL (7-20); CALCIUM 9.7 mg/dL (8.4-10.2); CARBON DIOXIDE 25 mmol/L (22-30); CHLORIDE 103 mmol/L (98-107); GLUCOSE 80 mg/dL (75-110); POTASSIUM 3.6 mmol/L (3.6-5.0); TOTAL PROTEIN 7.6 g/dL (6.3-8.2)
[2019-11-15 06:10] LABS: ALCOHOL < 10 mg/dL (NONE DETECTED)
== END 2019-11-15 07:00 | disposition left against medical advice (07) ==
LOC: ER 05:04
DX: F41.9 Anxiety disorder, unspecified (principal); R07.9 Chest pain, unspecified; R45.1 Restlessness and agitation; F17.210 Nicotine dependence, cigarettes, uncomplicated
CPT/HCPCS: 36415; 80053; 80307; 84703; 85025; 99406